=== PATIENT | male | born 1935 | race Caucasian/White ===

== ENCOUNTER 2017-03-06 08:15 | Emergency (ER) | payer MEDICARE, BC ==
--- NOTE | 2017-03-06 09:54 | EDM.PDOC ---
ED HPI GENERAL MEDICAL PROBLEM - General Chief Complaint: General Stated Complaint: REACTION TO MEDICATION Time Seen by Provider: 03/06/17 09:40 Source of Information: Reports: Patient, Family, RN Notes Reviewed History Limitations: Reports: No Limitations - History of Present Illness INITIAL COMMENTS - FREE TEXT/NARRATIVE: 81-year-old gentleman presents emergency department day complaint of rash, he recently had work done on his AICD with battery replacement was paced on Keflex prophylactically had taken the full course of 7 days of antibiotics then 2 days after completing the course antibiotic developed a rash he dealt with a rash for 2 days with Benadryl with no improvement was evaluated by his primary care started on prednisone 5 day course unfortunately he has not tolerated prednisone well he's developed some insomnia as well as twitching. Denies any shortness of breath or chest pain nausea vomiting or diarrhea - Related Data Allergies Allergy/AdvReac Type Severity Reaction Status Date / Time cephalexin Allergy Rash Verified 03/06/17 09:14 Home Meds: Home Meds Allopurinol [Allopurinol] 100 mg PO TID 03/20/15 [History] Aspirin [Erin Chewable Aspirin] 81 mg PO DAILY 03/20/15 [History] Carvedilol [Carvedilol] 6.25 mg PO BID 03/20/15 [History] Digoxin [Digoxin] 125 mcg PO DAILY 03/20/15 [History] Furosemide [Furosemide] 20 mg PO BID 03/20/15 [History] Isosorbide Mononitrate [Isosorbide Mononitrate ER] 30 mg PO DAILY 03/20/15 [ History] Multivitamin [Multi-Vitamin Daily] 1 tab PO DAILY 03/20/15 [History] Simvastatin [Simvastatin] 20 mg PO DAILY 03/20/15 [History] Spironolactone [Spironolactone] 25 mg PO DAILY 03/20/15 [History] glipiZIDE [Glipizide ER] 205 mg PO DAILY 03/20/15 [History] Prednisone [IMW: predniSONE] 20 mg PO BID 03/06/17 [History] Past Medical History Cardiovascular History: Reports: Heart Failure Genitourinary History: Reports: Urinary Incontinence Other Genitourinary History: surgery on prostate Musculoskeletal History: Reports: Other (See Below) Other Musculoskeletal History: new back and neck pain - jerking movements all over Neurological History: Reports: TIA, Other (See Below) Other Neuro History: hx of stroke 2 yrs ago Endocrine/Metabolic History: Reports: Diabetes, Type II - Infectious Disease History Infectious Disease History: Reports: Mumps - Past Surgical History Cardiovascular Surgical History: Reports: Coronary Artery Bypass Social & Family History - Tobacco Use Smoking Status *Q: Former Smoker Used Tobacco, but Quit: No Month Tobacco Last Used: 1989 - Caffeine Use Caffeine Use: Reports: Coffee - Alcohol Use Days Per Week of Alcohol Use: 7 Number of Drinks Per Day: 2 Total Drinks Per Week: 14 - Recreational Drug Use Recreational Drug Use: No ED ROS GENERAL - Review of Systems Review Of Systems: See Below Constitutional: Reports: No Symptoms HEENT: Reports: No Symptoms Respiratory: Reports: No Symptoms Cardiovascular: Reports: No Symptoms GI/Abdominal: Reports: No Symptoms : Reports: No Symptoms Skin: Reports: Rash. Denies: Bruising, Pruritis, Erythema Neurological: Reports: Other (Twitching) ED EXAM, GENERAL - Physical Exam Exam: See Below Exam Limited By: No Limitations General Appearance: Alert, WD/WN, No Apparent Distress Respiratory/Chest: No Respiratory Distress, Lungs Clear, Normal Breath Sounds, No Accessory Muscle Use Cardiovascular: Regular Rate, Rhythm, No Murmur Skin Exam: Warm, Dry, Intact, Rash, Other (Nonblanching) Course - Vital Signs Last Recorded V/S: Last Vital Signs Temp 95.4 F 03/06/17 13:06 Pulse 71 03/06/17 13:06 Resp 16 03/06/17 13:06 BP 137/69 03/06/17 13:06 Pulse Ox 95 03/06/17 13:06 - Orders/Labs/Meds Orders: Active Orders 24 hr Category Date Time Status EKG Documentation Completion [RC] ASDIRECTED Care 03/06/17 10:44 Active Peripheral IV Care [RC] . DIRECTED Care 03/06/17 10:44 Active Sodium Chloride 0.9% [Normal Saline] 1,000 ml Med 03/06/17 10:45 Active IV ASDIRECTED Sodium Chloride 0.9% [Saline Flush] Med 03/06/17 10:44 Active 10 ml FLUSH ASDIRECTED PRN Peripheral IV Insertion Adult [OM.PC] Urgent Oth 03/06/17 10:44 Ordered EKG 12 Lead [EK] Stat Ther 03/06/17 10:44 Ordered Medication Orders Sodium Chloride (Normal Saline) 1,000 mls @ 500 mls/hr IV ASDIRECTED JUANITA Last Admin: 03/06/17 11:27 Dose: 500 mls/hr Sodium Chloride (Saline Flush) 10 ml FLUSH ASDIRECTED PRN PRN Reason: Keep Vein Open Last Admin: 03/06/17 11:30 Dose: 10 ml Labs: Laboratory Tests 03/06/17 03/06/17 03/06/17 Range/Units 09:59 09:59 10:46 WBC 15.6 H (4.5-11.0) K/uL RBC 4.10 L (4.30-5.90) M/uL Hgb 13.7 (12.0-15.0) g/dL Hct 40.4 (40.0-54.0) % MCV 99 H (80-98) fL MCH 33 H (27-31) pg MCHC 34 (32-36) % Plt Count 224 (150-400) K/uL Neut % (Auto) 86 H (36-66) % Lymph % (Auto) 6 L (24-44) % [place] % (Auto) 8 H (2-6) % Eos % (Auto) 0 L (2-4) % Baso % (Auto) 0 (0-1) % Sodium 138 L (140-148) mmol/L Potassium 5.7 H (3.6-5.2) mmol/L Chloride 102 (100-108) mmol/L Carbon Dioxide 31 (21-32) mmol/L Anion Gap 10.7 (5.0-14.0) mmol/L BUN 41 H (7-18) mg/dL Creatinine 1.4 H (0.8-1.3) mg/dL Est Cr Clr Drug Dosing 40.36 mL/min Estimated GFR (MDRD) 49 L (>60) Glucose 119 H (74-106) mg/dL Calcium 9.4 (8.5-10.1) mg/dL Total Bilirubin 0.3 (0.2-1.0) mg/dL AST 61 H D (15-37) U/L ALT 30 (12-78) U/L Alkaline Phosphatase 125 H (46-116) U/L C-Reactive Protein 0.22 (0.0-0.3) mg/dL Total Protein 7.8 (6.4-8.2) g/dL Albumin 3.8 (3.4-5.0) g/dL Globulin 4.0 H (2.3-3.5) g/dL Albumin/Globulin Ratio 1.0 L (1.2-2.2) Digoxin 0.76 L (0.90-2.00) ng/mL 03/06/17 Range/Units 13:00 WBC (4.5-11.0) K/uL RBC (4.30-5.90) M/uL Hgb (12.0-15.0) g/dL Hct (40.0-54.0) % MCV (80-98) fL MCH (27-31) pg MCHC (32-36) % Plt Count (150-400) K/uL Neut % (Auto) (36-66) % Lymph % (Auto) (24-44) % [place] % (Auto) (2-6) % Eos % (Auto) (2-4) % Baso % (Auto) (0-1) % Sodium (140-148) mmol/L Potassium 4.9 (3.6-5.2) mmol/L Chloride (100-108) mmol/L Carbon Dioxide (21-32) mmol/L Anion Gap (5.0-14.0) mmol/L BUN (7-18) mg/dL Creatinine (0.8-1.3) mg/dL Est Cr Clr Drug Dosing mL/min Estimated GFR (MDRD) (>60) Glucose (74-106) mg/dL Calcium (8.5-10.1) mg/dL Total Bilirubin (0.2-1.0) mg/dL AST (15-37) U/L ALT (12-78) U/L Alkaline Phosphatase (46-116) U/L C-Reactive Protein (0.0-0.3) mg/dL Total Protein (6.4-8.2) g/dL Albumin (3.4-5.0) g/dL Globulin (2.3-3.5) g/dL Albumin/Globulin Ratio (1.2-2.2) Digoxin (0.90-2.00) ng/mL Meds: Medications Generic Name Dose Route Start Last Admin Trade Name Freq PRN Reason Stop Dose Admin Sodium Chloride 1,000 mls @ 500 mls/hr 03/06/17 10:45 03/06/17 11:27 Normal Saline IV 500 mls/hr ASDIRECTED JUANITA Administration Sodium Chloride 10 ml 03/06/17 10:44 03/06/17 11:30 Saline Flush FLUSH 10 ml ASDIRECTED PRN Administration Keep Vein Open Discontinued Medications Generic Name Dose Route Start Last Admin Trade Name Americo PRN Reason Stop Dose Admin Furosemide 20 mg 03/06/17 10:44 03/06/17 11:28 Lasix IVPUSH 03/06/17 10:45 20 mg ONETIME ONE Administration Departure - Departure Time of Disposition: 14:26 Disposition: Home, Self-Care 01 Condition: Good Clinical Impression: Allergic reaction caused by a drug Qualifiers: Encounter type: initial encounter Qualified Code(s): T78.40XA - Allergy, unspecified, initial encounter - Discharge Information Forms: ED Department Discharge Additional Instructions: List Keflex as an allergy, recommend limited use of prednisone and only if absolutely necessary, Please followup with your primary care provider in 3-5 days if not better, please call return to the emergency department with worsening of symptoms. - My Orders Last 24 Hours: My Active Orders 03/06/17 10:44 EKG Documentation Completion [RC] ASDIRECTED Peripheral IV Care [RC] . DIRECTED Sodium Chloride 0.9% [Saline Flush] 10 ml FLUSH ASDIRECTED PRN Peripheral IV Insertion Adult [OM.PC] Urgent EKG 12 Lead [EK] Stat 03/06/17 10:45 Sodium Chloride 0.9% [Normal Saline] 1,000 ml IV ASDIRECTED - Assessment/Plan Last 24 Hours: My Active Orders 03/06/17 10:44 EKG Documentation Completion [RC] ASDIRECTED Peripheral IV Care [RC] . DIRECTED Sodium Chloride 0.9% [Saline Flush] 10 ml FLUSH ASDIRECTED PRN Peripheral IV Insertion Adult [OM.PC] Urgent EKG 12 Lead [EK] Stat 03/06/17 10:45 Sodium Chloride 0.9% [Normal Saline] 1,000 ml IV ASDIRECTED Plan: Assessment Acuity = acute Site and laterality = diffuse rash, complicated in a patient with known history coronary artery disease, hypertension, dyslipidemia and congestive heart failure on digoxin Etiology = rash probably secondary to Keflex with an intolerance to prednisone Manifestations = hyperkalemia now resolved Location of injury = Home Lab values = WBC elevated 15.6 consistent leukocytosis probably secondary to steroid use, sodium low at 138 consistent hyponatremia potassium initially elevated at 5.7 after treatment of Lasix and fluid potassium now 4.9 creatinine elevated 1.4 consistent chronic renal failure stage GIII a digoxin 0.76 subtherapeutic range EKG demonstrates a paced rhythm Plan I did review lab work and EKG results with him recommend lists Keflex as an allergy and prednisone as intolerance him follow-up with his primary care 3-5 days for reevaluation if not better Patient was in agreement with the plan all questions were answered, they were instructed to return to the emergency department or call for worsening symptoms. This note was dictated using [employer] voice recognition software please call with any questions.
[2017-03-06] MEDS ORDERED: Sodium Chloride 0.9% 10 ML Syringe FLUSH PRN (10:44)
[2017-03-06] MEDS ORDERED: Furosemide 20 MG/2 ML VIAL IVPUSH ONE (10:44)
[2017-03-06] MEDS ORDERED: Sodium Chloride 0.9% 1,000 ML IV SCH (10:45)
[2017-03-06 13:07] VITALS: BP 137/69
== END 2017-03-06 14:40 | disposition home or self-care (01) ==
LOC: JP.ED 08:15
DX: L27.0 Generalized skin eruption due to drugs and medicaments taken internally (principal); T36.1X5A Adverse effect of cephalosporins and other beta-lactam antibiotics, initial encounter; G47.00 Insomnia, unspecified; R25.3 Fasciculation; T38.0X5A Adverse effect of glucocorticoids and synthetic analogues, initial encounter; E11.9 Type 2 diabetes mellitus without complications; I25.10 Atherosclerotic heart disease of native coronary artery without angina pectoris; I11.0 Hypertensive heart disease with heart failure; I50.9 Heart failure, unspecified; E78.5 Hyperlipidemia, unspecified; Z86.73 Personal history of transient ischemic attack (TIA), and cerebral infarction without residual deficits; Z79.82 Long term (current) use of aspirin; Z79.84 Long term (current) use of oral hypoglycemic drugs; Z79.899 Other long term (current) drug therapy; Z88.1 Allergy status to other antibiotic agents; Z95.1 Presence of aortocoronary bypass graft; Z95.810 Presence of automatic (implantable) cardiac defibrillator; Z87.891 Personal history of nicotine dependence
CPT/HCPCS: 36415; 80053; 80162; 84132; 85025; 86140; 93005; 93010; 96374; 99283; J1940; J7040; J7050

== ENCOUNTER 2017-12-06 11:47 | Emergency (ER) | payer MEDICARE, BC ==
[2017-12-06 12:40] VITALS: BP 119/62
--- NOTE | 2017-12-06 14:29 | EDM.PDOC ---
ED HPI GENERAL MEDICAL PROBLEM - General Chief Complaint: Genitourinary Problem Stated Complaint: CATHETER ISSUES Time Seen by Provider: 12/06/17 12:41 Source of Information: Reports: Patient, Family History Limitations: Reports: No Limitations - History of Present Illness INITIAL COMMENTS - FREE TEXT/NARRATIVE: 82 yo male presents to ER with following cutting his suprapubic cath. He was discharged from [facility] yesterday following a AAA repair and placement of suprapubic. Leg bag was causing pain so he cut catheter ~10 cm from ABD wall. cath is currently dribbling urine. Pt has no additional complaints - Related Data Allergies Allergy/AdvReac Type Severity Reaction Status Date / Time cephalexin Allergy Rash Verified 12/06/17 12:26 Home Meds: Home Meds Allopurinol 100 mg PO TID 03/20/15 [History] Aspirin [Erin Chewable Aspirin] 81 mg PO DAILY 03/20/15 [History] Carvedilol 6.25 mg PO BID 03/20/15 [History] Digoxin 125 mcg PO DAILY 03/20/15 [History] Furosemide 20 mg PO BID 03/20/15 [History] Isosorbide Mononitrate [Isosorbide Mononitrate ER] 30 mg PO DAILY 03/20/15 [ History] Multivitamin [Multi-Vitamin Daily] 1 tab PO DAILY 03/20/15 [History] Simvastatin 20 mg PO DAILY 03/20/15 [History] Spironolactone 25 mg PO DAILY 03/20/15 [History] glipiZIDE [Glipizide ER] 205 mg PO DAILY 03/20/15 [History] Prednisone [IMW: predniSONE] 20 mg PO BID 03/06/17 [History] Past Medical History Cardiovascular History: Reports: Heart Failure Genitourinary History: Reports: Urinary Incontinence Other Genitourinary History: surgery on prostate Musculoskeletal History: Reports: Other (See Below) Other Musculoskeletal History: new back and neck pain - jerking movements all over Neurological History: Reports: TIA, Other (See Below) Other Neuro History: hx of stroke 2 yrs ago Endocrine/Metabolic History: Reports: Diabetes, Type II Oncologic (Cancer) History: Reports: Bone - Infectious Disease History Infectious Disease History: Reports: Mumps - Past Surgical History Cardiovascular Surgical History: Reports: Aneurysm, Coronary Artery Bypass Male Surgical History: Reports: Suprapubic Catheter Placement Social & Family History - Tobacco Use Smoking Status *Q: Never Smoker - Caffeine Use Caffeine Use: Reports: Coffee ED ROS GENERAL - Review of Systems Review Of Systems: See Below Constitutional: Denies: Fever, Chills Respiratory: Denies: Shortness of Breath Cardiovascular: Denies: Chest Pain ED EXAM, GI/ABD - Physical Exam Exam: See Below Exam Limited By: No Limitations General Appearance: Alert, WD/WN Respiratory/Chest: No Respiratory Distress Neurological: Alert, Oriented Comments: suprapubic cath cut 10 cm from ABD wall, sutures in place Course - Vital Signs Last Recorded V/S: Last Vital Signs Temp 35.9 C 12/06/17 12:38 Pulse 84 12/06/17 12:38 Resp 14 12/06/17 12:38 BP 119/62 12/06/17 12:38 Pulse Ox 93 L 12/06/17 12:38 - Re-Assessments/Exams Free Text/Narrative Re-Assessment/Exam: 12/06/17 15:05 phone contact with Urologist it solutions sales consultant at [facility] requested that collection bag be attached and follow-up as planned. Departure - Departure Time of Disposition: 14:27 Disposition: Home, Self-Care 01 Condition: Good Clinical Impression: Catheter (urine) change required - Discharge Information Instructions: Indwelling Urinary Catheter Care, Adult Referrals: Rakesh Chiang MD [Primary Care Provider] - Forms: ED Department Discharge Additional Instructions: follow-up as planned with urology
== END 2017-12-06 15:23 | disposition home or self-care (01) ==
LOC: JP.ED 11:47
DX: Z46.6 Encounter for fitting and adjustment of urinary device (principal); E11.9 Type 2 diabetes mellitus without complications; I50.9 Heart failure, unspecified; Z79.84 Long term (current) use of oral hypoglycemic drugs; Z79.82 Long term (current) use of aspirin; Z88.1 Allergy status to other antibiotic agents; Z79.899 Other long term (current) drug therapy
CPT/HCPCS: 99283

== ENCOUNTER 2017-12-07 13:10 | Emergency (ER) | payer MEDICARE, BC ==
[2017-12-07 13:33] VITALS: BP 108/60
--- NOTE | 2017-12-07 16:43 | EDM.PDOC ---
ED HPI GENERAL MEDICAL PROBLEM - General Chief Complaint: Genitourinary Problem Stated Complaint: BLOOD IN URINE HAS CATH Time Seen by Provider: 12/07/17 14:09 Source of Information: Reports: Patient, Family, Old Records, RN Notes Reviewed History Limitations: Reports: No Limitations - History of Present Illness INITIAL COMMENTS - FREE TEXT/NARRATIVE: 82-year-old presents to the emergency department day with complaint of blood in his urine, he recently had AAA repair had suprapubic catheter placement at that time. Was in the emergency department yesterday because he cut the suprapubic catheter. Today he is complaining of bright red blood in the urine he takes combination aspirin and Plavix a temporary fix was provided for his suprapubic catheter until he can be evaluated by his urologist next week - Related Data Allergies Allergy/AdvReac Type Severity Reaction Status Date / Time cephalexin Allergy Rash Verified 12/06/17 12:26 Home Meds: Home Meds Allopurinol 100 mg PO TID 03/20/15 [History] Aspirin [Erin Chewable Aspirin] 81 mg PO DAILY 03/20/15 [History] Carvedilol 6.25 mg PO BID 03/20/15 [History] Digoxin 125 mcg PO DAILY 03/20/15 [History] Furosemide 20 mg PO BID 03/20/15 [History] Isosorbide Mononitrate [Isosorbide Mononitrate ER] 30 mg PO DAILY 03/20/15 [ History] Multivitamin [Multi-Vitamin Daily] 1 tab PO DAILY 03/20/15 [History] Simvastatin 20 mg PO DAILY 03/20/15 [History] Spironolactone 25 mg PO DAILY 03/20/15 [History] glipiZIDE [Glipizide ER] 205 mg PO DAILY 03/20/15 [History] Prednisone [IMW: predniSONE] 20 mg PO BID 03/06/17 [History] Past Medical History Cardiovascular History: Reports: Heart Failure Genitourinary History: Reports: Urinary Incontinence Other Genitourinary History: surgery on prostate Musculoskeletal History: Reports: Other (See Below) Other Musculoskeletal History: new back and neck pain - jerking movements all over Neurological History: Reports: TIA, Other (See Below) Other Neuro History: hx of stroke 2 yrs ago Endocrine/Metabolic History: Reports: Diabetes, Type II Oncologic (Cancer) History: Reports: Bone - Infectious Disease History Infectious Disease History: Reports: Mumps - Past Surgical History Cardiovascular Surgical History: Reports: Aneurysm, Coronary Artery Bypass Male Surgical History: Reports: Suprapubic Catheter Placement Social & Family History - Tobacco Use Smoking Status *Q: Never Smoker - Caffeine Use Caffeine Use: Reports: Coffee - Recreational Drug Use Recreational Drug Use: No ED ROS GENERAL - Review of Systems Review Of Systems: See Below Constitutional: Reports: No Symptoms : Reports: Hematuria ED EXAM, RENAL/ - Physical Exam Exam: See Below Exam Limited By: No Limitations General Appearance: Alert, WD/WN, No Apparent Distress GI/Abdominal: Soft, Non-Tender, Other (Suprapubic catheter is clean dry and intact) Course - Vital Signs Last Recorded V/S: Last Vital Signs Temp 96.1 F 12/07/17 13:32 Pulse 67 12/07/17 13:32 Resp 14 12/07/17 13:32 BP 108/60 12/07/17 13:32 Pulse Ox 98 12/07/17 13:32 - Orders/Labs/Meds Orders: Active Orders 24 hr Category Date Time Status UA W/MICROSCOPIC [URIN] Urgent Lab 12/07/17 16:02 Ordered Labs: Laboratory Tests 12/07/17 Range/Units 16:02 Urine Color Red Urine Appearance Turbid Urine pH 5.0 (4.5-8.0) Ur Specific [place] 1.005 L (1.008-1.030) Urine Protein 100 H (NEGATIVE) mg/dL Urine Glucose (UA) Normal (NEGATIVE) mg/dL Urine Ketones Negative (NEGATIVE) mg/dL Urine Occult Blood Large (NEGATIVE) Urine Nitrite Negative (NEGAITVE) Urine Bilirubin Negative (NEGATIVE) Urine Urobilinogen Normal (NORMAL) mg/dL Ur Leukocyte Esterase Moderate (NEGATIVE) Urine RBC Packed H (0-5) Urine WBC 0-5 (0-5) Ur Epithelial Cells Rare Amorphous Sediment Not seen Urine Bacteria Not seen Urine Mucus Not seen Departure - Departure Time of Disposition: 16:42 Disposition: Home, Self-Care 01 Condition: Fair Clinical Impression: Hematuria Qualifiers: Hematuria type: gross Qualified Code(s): R31.0 - Gross hematuria - Discharge Information Referrals: Rakesh Chiang MD [Primary Care Provider] - Additional Instructions: Please stop your aspirin, recommend keeping your follow-up appointment with your urologist next week, call return to the emergency department with worsening of symptoms - My Orders Last 24 Hours: My Active Orders 12/07/17 16:02 UA W/MICROSCOPIC [URIN] Urgent - Assessment/Plan Last 24 Hours: My Active Orders 12/07/17 16:02 UA W/MICROSCOPIC [URIN] Urgent Plan: Assessment Acuity = acute Site and laterality = hematuria Etiology = probably secondary to trauma with the suprapubic catheter Manifestations = none Location of injury = Home Lab values = urinalysis reveals packed red blood cells consistent with hematuria Plan Recommend stopping aspirin at this time continue with the Plavix keep your follow-up appointment with urology expect the hematuria to clear over the next week This note was dictated using [employer] voice recognition software please call with any questions on syntax or grammar.
== END 2017-12-07 16:55 | disposition home or self-care (01) ==
LOC: JP.ED 13:10
DX: R31.0 Gross hematuria (principal); E11.9 Type 2 diabetes mellitus without complications; I50.9 Heart failure, unspecified; Z88.1 Allergy status to other antibiotic agents; Z79.82 Long term (current) use of aspirin; Z79.899 Other long term (current) drug therapy; Z79.84 Long term (current) use of oral hypoglycemic drugs; Z86.73 Personal history of transient ischemic attack (TIA), and cerebral infarction without residual deficits; Z96.0 Presence of urogenital implants
CPT/HCPCS: 81001; 99284

== ENCOUNTER 2017-12-19 03:37 | Inpatient (IN) | payer MEDICARE, BC ==
--- NOTE | 2017-12-19 05:47 | EDM.PDOC ---
ED HPI GENERAL MEDICAL PROBLEM - General Chief Complaint: Respiratory Problem Stated Complaint: [facility] Time Seen by Provider: 12/19/17 04:17 Source of Information: Reports: Family History Limitations: Reports: Physical Impairment (You tell me that he was in clinic yesterday for her well visit is a lot of scar tissue) - History of Present Illness INITIAL COMMENTS - FREE TEXT/NARRATIVE: This gentleman arrived by EMS from home. He has bone cancer and he was seen in clinic yesterday for preop exam. A urologist plans to do some revisions lady the prostate that has cause some blockage and which resulted in inability to pass a catheter so he wound up with a suprapubic catheter he was doing well the time of his exam yesterday but tonight he became short of breath and very weak. They noticed he seemed to be a little bit sweaty. His says he is had a great deal of medical work over the past month. Recently he had an abdominal aortic aneurysm repair in [place]. He's had some loose stools for the past week but not any flako diarrhea is a very poor appetite but is taking fluids okay. They said he's lost about 14 pounds over the past year. The patient can't really give me any kind of history and so everything is obtained from his his told the nurse that he is a DNR/DNI patient they do want IV fluids and antibiotics and so forth Treatments BUSINESS INTERN: Reports: IV/IO - Related Data Allergies Allergy/AdvReac Type Severity Reaction Status Date / Time cephalexin Allergy Rash Verified 12/19/17 03:49 Home Meds: Home Meds Allopurinol 300 mg PO DAILY 03/20/15 [History] Carvedilol 6.25 mg PO BID 03/20/15 [History] Digoxin 125 mcg PO DAILY 03/20/15 [History] Furosemide 20 mg PO BID 03/20/15 [History] Isosorbide Mononitrate [Isosorbide Mononitrate ER] 30 mg PO DAILY 03/20/15 [ History] Multivitamin [Multi-Vitamin Daily] 1 tab PO DAILY 03/20/15 [History] Simvastatin 20 mg PO DAILY 03/20/15 [History] Spironolactone 25 mg PO DAILY 03/20/15 [History] glipiZIDE [Glipizide ER] 2.5 mg PO DAILY 03/20/15 [History] Bicalutamide [Casodex] 50 mg PO DAILY 12/19/17 [History] Clopidogrel Bisulfate [Clopidogrel] 1 tab PO DAILY 12/19/17 [History] Leuprolide [Lupron] 1 mg SQ Q90D 12/19/17 [History] Past Medical History Cardiovascular History: Reports: Afib, Aneurysm, CAD, Heart Failure, High Cholesterol, Hypertension, [place], Pacemaker Genitourinary History: Reports: Prostate Disorder, Urinary Incontinence Other Genitourinary History: surgery on prostate Musculoskeletal History: Reports: Other (See Below) Other Musculoskeletal History: new back and neck pain - jerking movements all over Neurological History: Reports: CVA, TIA, Other (See Below) Other Neuro History: hx of stroke 2 yrs ago Endocrine/Metabolic History: Reports: Diabetes, Type II Hematologic History: Reports: Blood Transfusion(s) Immunologic History: Reports: Immunosuppression Oncologic (Cancer) History: Reports: Bone, Prostate - Infectious Disease History Infectious Disease History: Reports: Mumps - Past Surgical History Cardiovascular Surgical History: Reports: Aneurysm, Coronary Artery Bypass, Pacer GI Surgical History: Reports: Colonoscopy Male Surgical History: Reports: Prostatectomy, Suprapubic Catheter Placement Social & Family History - Tobacco Use Smoking Status *Q: Former Smoker Used Tobacco, but Quit: Yes Month/Year Tobacco Last Used: 1989 - Caffeine Use Caffeine Use: Reports: Coffee - Alcohol Use Days Per Week of Alcohol Use: 7 Number of Drinks Per Day: 2 Total Drinks Per Week: 14 - Recreational Drug Use Recreational Drug Use: No ED ROS GENERAL - Review of Systems Review Of Systems: Unable To Obtain (All history is obtained from his ) ED EXAM, GENERAL - Physical Exam Exam: See Below Exam Limited By: Physical Impairment General Appearance: Alert, Other (A chronically ill appearing but does not appear to be dyspneic. He looks like he is resting comfortably) Eye Exam: Bilateral Eye: PERRL Throat/Mouth: Other (Wearing dentures. Mucous membranes are moist) Head: Atraumatic Neck: Supple Respiratory/Chest: Other (Lungs generally sound clear but breath sounds seem decreased.) Cardiovascular: Regular Rate, Rhythm Peripheral Pulses: 1+: Radial (L), Radial (R) (The patient has vannessa in the groin bilaterally from the recent AAA repair) GI/Abdominal: Normal Bowel Sounds, Soft, Non-Tender (Male) Exam: Other (There is a suprapubic catheter in place) Extremities: No Pedal Edema, Other (There is muscle wasting in the legs but no edema) Neurological: Alert (This gentleman seems to be fairly alert he can answer a few simple questions but his gives most history), No Motor/Sensory Deficits (He moves all extremities normally) Skin Exam: Diaphoretic (Same slightly diaphoretic), Pallor Course - Vital Signs Last Recorded V/S: Last Vital Signs Temp 35.8 C 12/19/17 05:25 Pulse 122 H 12/19/17 03:45 Resp 21 H 12/19/17 05:25 BP 114/65 12/19/17 05:25 Pulse Ox 97 12/19/17 04:25 - Orders/Labs/Meds Orders: Active Orders 24 hr Category Date Time Status Chest 1V Frontal [CR] Urgent Exams 12/19/17 04:18 Taken CULTURE BLOOD [BC] Urgent Lab 12/19/17 04:25 Received CULTURE BLOOD [BC] Urgent Lab 12/19/17 04:33 Received UA W/MICROSCOPIC [URIN] Urgent Lab 12/19/17 05:10 Ordered Blood Culture x2 Reflex Set [OM.PC] Urgent Oth 12/19/17 04:19 Ordered Labs: Laboratory Tests 12/19/17 12/19/17 12/19/17 Range/Units 04:18 04:25 04:25 WBC 5.9 (4.5-11.0) K/uL RBC 3.22 L (4.30-5.90) M/uL Hgb 9.9 L D (12.0-15.0) g/dL Hct 31.9 L (40.0-54.0) % MCV 99 H (80-98) fL MCH 31 (27-31) pg MCHC 31 L (32-36) % Plt Count 175 (150-400) K/uL Neut % (Auto) 82 H (36-66) % Lymph % (Auto) 9 L (24-44) % [place] % (Auto) 9 H (2-6) % Eos % (Auto) 0 L (2-4) % Baso % (Auto) 0 (0-1) % PT (9.5-12.0) sec INR (0.80-1.20) Sodium (140-148) mmol/L Potassium (3.6-5.2) mmol/L Chloride (100-108) mmol/L Carbon Dioxide (21-32) mmol/L Anion Gap (5.0-14.0) mmol/L BUN (7-18) mg/dL Creatinine (0.8-1.3) mg/dL Est Cr Clr Drug Dosing mL/min Estimated GFR (MDRD) (>60) Glucose (74-106) mg/dL Lactic Acid 2.8 H (0.4-2.0) mmol/L Calcium (8.5-10.1) mg/dL Total Bilirubin (0.2-1.0) mg/dL AST (15-37) U/L ALT (12-78) U/L Alkaline Phosphatase (46-116) U/L Troponin I 0.111 H* (0.000-0.056) ng/mL NT-Pro-B Natriuret Pep 43909 H (5-450) pg/mL Total Protein (6.4-8.2) g/dL Albumin (3.4-5.0) g/dL Globulin (2.3-3.5) g/dL Albumin/Globulin Ratio (1.2-2.2) Urine Color Urine Appearance Urine pH (4.5-8.0) Ur Specific [place] (1.008-1.030) Urine Protein (NEGATIVE) mg/dL Urine Glucose (UA) (NEGATIVE) mg/dL Urine Ketones (NEGATIVE) mg/dL Urine Occult Blood (NEGATIVE) Urine Nitrite (NEGAITVE) Urine Bilirubin (NEGATIVE) Urine Urobilinogen (NORMAL) mg/dL Ur Leukocyte Esterase (NEGATIVE) Urine RBC (0-5) Urine WBC (0-5) Ur Epithelial Cells Amorphous Sediment Urine Bacteria Urine Mucus Urine Other 12/19/17 12/19/17 12/19/17 Range/Units 04:25 04:25 05:10 WBC (4.5-11.0) K/uL RBC (4.30-5.90) M/uL Hgb (12.0-15.0) g/dL Hct (40.0-54.0) % MCV (80-98) fL MCH (27-31) pg MCHC (32-36) % Plt Count (150-400) K/uL Neut % (Auto) (36-66) % Lymph % (Auto) (24-44) % [place] % (Auto) (2-6) % Eos % (Auto) (2-4) % Baso % (Auto) (0-1) % PT 12.9 H (9.5-12.0) sec INR 1.20 (0.80-1.20) Sodium 138 L (140-148) mmol/L Potassium 6.3 H* (3.6-5.2) mmol/L Chloride 104 (100-108) mmol/L Carbon Dioxide 22 (21-32) mmol/L Anion Gap 18.3 H (5.0-14.0) mmol/L BUN 40 H (7-18) mg/dL Creatinine 2.0 H (0.8-1.3) mg/dL Est Cr Clr Drug Dosing 25.09 mL/min Estimated GFR (MDRD) 32 L (>60) Glucose 186 H (74-106) mg/dL Lactic Acid (0.4-2.0) mmol/L Calcium 6.8 L* D (8.5-10.1) mg/dL Total Bilirubin 2.2 H D (0.2-1.0) mg/dL AST 699 H D (15-37) U/L ALT 353 H (12-78) U/L Alkaline Phosphatase 212 H (46-116) U/L Troponin I (0.000-0.056) ng/mL NT-Pro-B Natriuret Pep (5-450) pg/mL Total Protein 6.6 (6.4-8.2) g/dL Albumin 3.3 L (3.4-5.0) g/dL Globulin 3.3 (2.3-3.5) g/dL Albumin/Globulin Ratio 1.0 L (1.2-2.2) Urine Color Yellow Urine Appearance Cloudy Urine pH 9.0 H (4.5-8.0) Ur Specific [place] 1.010 (1.008-1.030) Urine Protein 500 H (NEGATIVE) mg/dL Urine Glucose (UA) Normal (NEGATIVE) mg/dL Urine Ketones Negative (NEGATIVE) mg/dL Urine Occult Blood Large (NEGATIVE) Urine Nitrite Negative (NEGAITVE) Urine Bilirubin Small (NEGATIVE) Urine Urobilinogen 4 (NORMAL) mg/dL Ur Leukocyte Esterase Large (NEGATIVE) Urine RBC 20-30 H (0-5) Urine WBC 20-30 H (0-5) Ur Epithelial Cells Not seen Amorphous Sediment Few Urine Bacteria Few Urine Mucus Many Urine Other - Radiology Interpretation Free Text/Narrative:: Preliminary by myself the heart appears to be somewhat enlarged no definite pulmonary edema the bones in particular of the humerus bilaterally appear to be very moth-eaten looking. - Re-Assessments/Exams Free Text/Narrative Re-Assessment/Exam: 12/19/17 05:53 Labs were reviewed on this patient and multiple abnormalities are noted. I discussed with the hospitalist Dr. Mustafa the urinalysis wasn't available at the time but that's come in and shows possibly some signs of infection. At this point the patient appears to be fairly stable. The patient looks far better than his lab profile would suggest. Departure - Departure Time of Disposition: 05:57 Disposition: Admitted As Inpatient 67 Condition: Serious Clinical Impression: Bone cancer, Weakness, Dyspnea - Discharge Information Referrals: Rakesh Chiang MD [Primary Care Provider] - - My Orders Last 24 Hours: My Active Orders 12/19/17 04:18 Chest 1V Frontal [CR] Urgent 12/19/17 04:19 Blood Culture x2 Reflex Set [OM.PC] Urgent 12/19/17 04:25 CULTURE BLOOD [BC] Urgent 12/19/17 04:33 CULTURE BLOOD [BC] Urgent 12/19/17 05:10 UA W/MICROSCOPIC [URIN] Urgent - Assessment/Plan Last 24 Hours: My Active Orders 12/19/17 04:18 Chest 1V Frontal [CR] Urgent 12/19/17 04:19 Blood Culture x2 Reflex Set [OM.PC] Urgent 12/19/17 04:25 CULTURE BLOOD [BC] Urgent 12/19/17 04:33 CULTURE BLOOD [BC] Urgent 12/19/17 05:10 UA W/MICROSCOPIC [URIN] Urgent
[2017-12-19] MEDS ORDERED: Furosemide 40 MG/4 ML VIAL IVPUSH ONE (07:21)
--- NOTE | 2017-12-19 07:37 | PCM.HP ---
H&P History of Present Illness - General Date of Service: 12/19/17 Admit Problem/Dx: Admission Diagnosis/Problem Admission Diagnosis/Problem CHF, Congestive heart failure Source of Information: Patient, Family, Provider History Limitations: Reports: No Limitations - History of Present Illness Initial Comments - Free Text/Narative: Manjeet presented to the emergency room early this morning with shortness of breath. He describes moderate shortness of breath both at rest and with activity. This has been slowly progressing but worse over the past 24 hours. He does not report orthopnea per se but does think that he feels better when he sits up. He does not have a cough. He does not have any chest pain or chest tightness. No lower extremity swelling. No fevers or chills. He has had a couple of episodes where he suddenly becomes weak and diaphoretic. These episodes don't last very long but seemed to hit him pretty hard. He thinks maybe his urine looks a little darker than usual but in general has not noticed much warp changer the past week. He has mild loose stools but no flako diarrhea. He does not have abdominal pain or nausea. He was seen in the clinic yesterday and no concerns were raised by the provider seeing him at that time. Recent medical history has been complicated with endovascular AAA repair and postop urinary retention. A Gonzalez catheter was unable to be passed so he ended up with a suprapubic catheter. No obvious complications from the AAA repair. He is set up to see a urologist for further workup and hopefully treatment of his lower urinary tract obstruction. 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 Workup in the emergency room revealed multiple lab abnormalities including hyperkalemia, acute kidney injury, significant transaminitis with AST and ALTs in the 600 range, hypocalcemia as well as a troponin of 0.11. Chest x-ray did not show obvious acute findings. Clinical history and examination consistent with congestive heart failure and the plan was admission for further management. Shortly before transfer to the intensive care unit patient developed acute onset of shortness of breath. Cardiac monitoring at the time showed a wide-complex fairly regular tachycardia with a rate around 160. Oxygen was applied and the rate did slow down to around 120 and then back to around 80 before any intervention could be supplied. symptoms resolved once heart rate returned to normal. - Related Data Allergies/Adverse Reactions: Allergies Allergy/AdvReac Type Severity Reaction Status Date / Time cephalexin Allergy Rash Verified 12/19/17 03:49 Home Medications: Home Meds Allopurinol 300 mg PO DAILY 03/20/15 [History] Carvedilol 6.25 mg PO BID 03/20/15 [History] Digoxin 125 mcg PO DAILY 03/20/15 [History] Furosemide 20 mg PO BID 03/20/15 [History] Isosorbide Mononitrate [Isosorbide Mononitrate ER] 30 mg PO DAILY 03/20/15 [ History] Multivitamin [Multi-Vitamin Daily] 1 tab PO DAILY 03/20/15 [History] Simvastatin 20 mg PO DAILY 03/20/15 [History] Spironolactone 25 mg PO DAILY 03/20/15 [History] glipiZIDE [Glipizide ER] 2.5 mg PO DAILY 03/20/15 [History] Bicalutamide [Casodex] 50 mg PO DAILY 12/19/17 [History] Clopidogrel Bisulfate [Clopidogrel] 1 tab PO DAILY 12/19/17 [History] Leuprolide [Lupron] 1 mg SQ Q90D 12/19/17 [History] Past Medical History Cardiovascular History: Reports: Afib, Aneurysm, CAD, Heart Failure, High Cholesterol, Hypertension, [place], Pacemaker Genitourinary History: Reports: Prostate Disorder, Urinary Incontinence Other Genitourinary History: surgery on prostate Musculoskeletal History: Reports: Other (See Below) Other Musculoskeletal History: new back and neck pain - jerking movements all over Neurological History: Reports: CVA, TIA, Other (See Below) Other Neuro History: hx of stroke 2 yrs ago Endocrine/Metabolic History: Reports: Diabetes, Type II Hematologic History: Reports: Blood Transfusion(s) Immunologic History: Reports: Immunosuppression Oncologic (Cancer) History: Reports: Bone, Prostate - Infectious Disease History Infectious Disease History: Reports: Mumps - Past Surgical History Cardiovascular Surgical History: Reports: Aneurysm, Coronary Artery Bypass, Pacer GI Surgical History: Reports: Colonoscopy Male Surgical History: Reports: Prostatectomy, Suprapubic Catheter Placement Social & Family History - Family History Cardiac: Reports: CAD - Tobacco Use Smoking Status *Q: Former Smoker Used Tobacco, but Quit: Yes Month/Year Tobacco Last Used: 1989 - Caffeine Use Caffeine Use: Reports: Coffee - Alcohol Use Days Per Week of Alcohol Use: 7 Number of Drinks Per Day: 2 Total Drinks Per Week: 14 - Recreational Drug Use Recreational Drug Use: No H&P Review of Systems - Review of Systems: Review Of Systems: See Below Free Text/Narrative: A complete 12 point review of systems was obtained. Pertinent positives and negatives are noted in the history of present illness. All other systems were reviewed and were negative except as noted. Exam - Exam Exam: See Below - Vital Signs Vital Signs: Last Vital Signs Temp 35.8 C 12/19/17 05:25 Pulse 122 H 12/19/17 03:45 Resp 17 12/19/17 06:25 BP 108/62 12/19/17 06:25 Pulse Ox 97 12/19/17 04:25 Weight: 61.235 kg - Exam Quality Assessment: No: Supplemental Oxygen General: Alert, Oriented, Cooperative. No: Mild Distress HEENT: Conjunctiva Clear, Mucosa Moist & [place]. No: Scleral Icterus Neck: Supple, Trachea Midline, JVD Lungs: Clear to Auscultation, Normal Respiratory Effort, Decreased Breath Sounds (mild left lower lung field) Cardiovascular: Regular Rate, Regular Rhythm, Systolic Murmur. No: Gallop/S3 GI/Abdominal Exam: Normal Bowel Sounds, Soft, No Distention, No Mass, Tender ( mild left side). No: Guarding Back Exam: Normal Inspection, Full Range of Motion Extremities: No Pedal Edema. No: Increased Warmth Peripheral Pulses: 2+: Dorsalis Pedis (L), Dorsalis Pedis (R) Skin: Warm, Dry Neuro Extensive - Mental Status: Alert, Oriented x3, Nl Response to Commands Neuro Extensive - Motor, Sensory, Reflexes: CN II-XII Intact. No: Dysarthria, Abnormal Motor, Tremor Psychiatric: Alert, Normal Affect - Patient Data Lab Results Last 24 hrs: Laboratory Results - last 24 hr 12/19/17 12/19/17 12/19/17 Range/Units 04:18 04:25 04:25 WBC 5.9 (4.5-11.0) K/uL RBC 3.22 L (4.30-5.90) M/uL Hgb 9.9 L D (12.0-15.0) g/dL Hct 31.9 L (40.0-54.0) % MCV 99 H (80-98) fL MCH 31 (27-31) pg MCHC 31 L (32-36) % Plt Count 175 (150-400) K/uL Neut % (Auto) 82 H (36-66) % Lymph % (Auto) 9 L (24-44) % [place] % (Auto) 9 H (2-6) % Eos % (Auto) 0 L (2-4) % Baso % (Auto) 0 (0-1) % PT (9.5-12.0) sec INR (0.80-1.20) Sodium (140-148) mmol/L Potassium (3.6-5.2) mmol/L Chloride (100-108) mmol/L Carbon Dioxide (21-32) mmol/L Anion Gap (5.0-14.0) mmol/L BUN (7-18) mg/dL Creatinine (0.8-1.3) mg/dL Est Cr Clr Drug Dosing mL/min Estimated GFR (MDRD) (>60) Glucose (74-106) mg/dL Lactic Acid 2.8 H (0.4-2.0) mmol/L Calcium (8.5-10.1) mg/dL Total Bilirubin (0.2-1.0) mg/dL AST (15-37) U/L ALT (12-78) U/L Alkaline Phosphatase (46-116) U/L Troponin I 0.111 H* (0.000-0.056) ng/mL NT-Pro-B Natriuret Pep 72313 H (5-450) pg/mL Total Protein (6.4-8.2) g/dL Albumin (3.4-5.0) g/dL Globulin (2.3-3.5) g/dL Albumin/Globulin Ratio (1.2-2.2) Urine Color Urine Appearance Urine pH (4.5-8.0) Ur Specific [place] (1.008-1.030) Urine Protein (NEGATIVE) mg/dL Urine Glucose (UA) (NEGATIVE) mg/dL Urine Ketones (NEGATIVE) mg/dL Urine Occult Blood (NEGATIVE) Urine Nitrite (NEGAITVE) Urine Bilirubin (NEGATIVE) Urine Urobilinogen (NORMAL) mg/dL Ur Leukocyte Esterase (NEGATIVE) Urine RBC (0-5) Urine WBC (0-5) Ur Epithelial Cells Amorphous Sediment Urine Bacteria Urine Mucus Urine Other 12/19/17 12/19/1712/19/18 Range/Units 04:25 04:25 05:10 WBC (4.5-11.0) K/uL RBC (4.30-5.90) M/uL Hgb (12.0-15.0) g/dL Hct (40.0-54.0) % MCV (80-98) fL MCH (27-31) pg MCHC (32-36) % Plt Count (150-400) K/uL Neut % (Auto) (36-66) % Lymph % (Auto) (24-44) % [place] % (Auto) (2-6) % Eos % (Auto) (2-4) % Baso % (Auto) (0-1) % PT 12.9 H (9.5-12.0) sec INR 1.20 (0.80-1.20) Sodium 138 L (140-148) mmol/L Potassium 6.3 H* (3.6-5.2) mmol/L Chloride 104 (100-108) mmol/L Carbon Dioxide 22 (21-32) mmol/L Anion Gap 18.3 H (5.0-14.0) mmol/L BUN 40 H (7-18) mg/dL Creatinine 2.0 H (0.8-1.3) mg/dL Est Cr Clr Drug Dosing 25.09 mL/min Estimated GFR (MDRD) 32 L (>60) Glucose 186 H (74-106) mg/dL Lactic Acid (0.4-2.0) mmol/L Calcium 6.8 L* D (8.5-10.1) mg/dL Total Bilirubin 2.2 H D (0.2-1.0) mg/dL AST 699 H D (15-37) U/L ALT 353 H (12-78) U/L Alkaline Phosphatase 212 H (46-116) U/L Troponin I (0.000-0.056) ng/mL NT-Pro-B Natriuret Pep (5-450) pg/mL Total Protein 6.6 (6.4-8.2) g/dL Albumin 3.3 L (3.4-5.0) g/dL Globulin 3.3 (2.3-3.5) g/dL Albumin/Globulin Ratio 1.0 L (1.2-2.2) Urine Color Yellow Urine Appearance Cloudy Urine pH 9.0 H (4.5-8.0) Ur Specific [place] 1.010 (1.008-1.030) Urine Protein 500 H (NEGATIVE) mg/dL Urine Glucose (UA) Normal (NEGATIVE) mg/dL Urine Ketones Negative (NEGATIVE) mg/dL Urine Occult Blood Large (NEGATIVE) Urine Nitrite Negative (NEGAITVE) Urine Bilirubin Small (NEGATIVE) Urine Urobilinogen 4 (NORMAL) mg/dL Ur Leukocyte Esterase Large (NEGATIVE) Urine RBC 20-30 H (0-5) Urine WBC 20-30 H (0-5) Ur Epithelial Cells Not seen Amorphous Sediment Few Urine Bacteria Few Urine Mucus Many Urine Other Result Diagrams: 12/19/17 04:18 12/19/17 04:25 Imaging Impressions Last 24 hrs: CXR - images personally reviewed - heart size is enlarged, no effusion, mass or infiltrate. No obvious CHF findings EKG INTERPRETATION EKG Date: 12/19/17 Rhythm: Other (ventricular paced) Rate (Beats/Min): 80 [place]: LAD-Left [place] Deviation P-Wave: Absent QRS: Wide ST-T: Other (discordant to QRS complex) QT: Normal *Q Meaningful Use (ADM) - VTE Risk Assess *Q Each Risk Factor Represents 1 Point: Congestive heart failure (CHF) Total Score 1 Point Risk Factors: 1 Each Risk Factor Represents 2 Points: Malignancy (present or previous) Total Score 2 Point Risk Factors: 2 Each Risk Factor Represents 3 Points: Age 75 Years or Greater Total Score 3 Point Risk Factors: 3 Each Risk Factor Represents 5 Points: None Total Score 5 Point Risk Factors: 0 Venous Thromboembolism Risk Factor Score *Q: 6 - Problem List (1) Acute systolic CHF (congestive heart failure) SNOMED Code(s): 042176482, 018009054 ICD Code: I50.21 - ACUTE SYSTOLIC (CONGESTIVE) HEART FAILURE Status: Acute Current Visit: Yes (2) Hyperkalemia SNOMED Code(s): 20300338 ICD Code: E87.5 - HYPERKALEMIA Status: Acute Current Visit: Yes (3) Acute on chronic kidney failure SNOMED Code(s): 564759206 ICD Code: N17.9 - ACUTE KIDNEY FAILURE, UNSPECIFIED; N18.9 - CHRONIC KIDNEY DISEASE, UNSPECIFIED Status: Acute Current Visit: Yes Qualifiers: Acute renal failure type: unspecified Chronic kidney disease stage: stage 3 (moderate) Qualified Code(s): N17.9 - Acute kidney failure, unspecified; N18.3 - Chronic kidney disease, stage 3 (moderate) (4) Prostate cancer metastatic to bone SNOMED Code(s): 67776910 ICD Code: C61 - MALIGNANT NEOPLASM OF PROSTATE; C79.51 - SECONDARY MALIGNANT NEOPLASM OF BONE Status: Acute Current Visit: Yes Problem List Initiated/Reviewed/Updated: Yes Orders Last 24hrs: Active Orders 24 hr Category Date Time Status Patient Status Manage Transfer [TRANSFER] Routine ADT 12/19/17 07:22 Ordered EKG Documentation Completion [RC] ASDIRECTED Care 12/19/17 06:43 Active Chest 1V Frontal [CR] Urgent Exams 12/19/17 04:18 Taken CULTURE BLOOD [BC] Urgent Lab 12/19/17 04:25 Received CULTURE BLOOD [BC] Urgent Lab 12/19/17 04:33 Received CULTURE URINE [RM] Stat Lab 12/19/17 05:44 Received UA W/MICROSCOPIC [URIN] Urgent Lab 12/19/17 05:10 Ordered Blood Culture x2 Reflex Set [OM.PC] Urgent Oth 12/19/17 04:19 Ordered Resuscitation Status Routine Resus Stat 12/19/17 07:24 Ordered EKG 12 Lead [EK] Urgent Ther 12/19/17 06:43 Ordered Assessment/Plan Comment:: ASSESSMENT AND PLAN - Acute systolic congestive heart failure - 6 pound weight gain and increasing shortness of breath. He does have JVD but does not have significant crackles or lower extremity edema. I suspect the heart failures leading to poor renal perfusion as well as hepatic congestion as discussed below. Most recent ejection fraction measured within the past month was approximately 20%. -IV furosemide 40 mg -Cardiac monitoring -Continue carvedilol -Hold spironolactone with hyperkalemia -CARRIE inhibitor contraindicated with hyperkalemia Paroxysmal wide-complex tachycardia - monitoring machine reading ventricular tachycardia, EKG suggests sinus tachycardia. Atrial fibrillation with apparent conduction could also be considered. I suspect the arrhythmias related to renal failure and hyperkalemia complicating his ischemic cardiomyopathy. paroxysmal arrhythmias could explain his intermittent "hot flashes". -Hyperkalemia management as below -Amiodarone bolus followed by 24 hour infusion -Continue beta annie -Cardiac monitoring Hyperkalemia - probably related to poor renal perfusion as well as spironolactone use. Is not currently on an CARRIE inhibitor. -2 g of calcium gluconate now -D50 followed by 5 units of insulin -Furosemide as above -Repeat level early this afternoon Elevated troponin - mild elevation at the time occurs in the setting of known coronary artery disease with large fixed infarcts based on recent stress testing. No chest pain at this time. I suspect the heart failure is the instigator and there is reduced renal clearance with his acute kidney injury. EKG does not show acute ischemic changes. -Serial troponin levels -Management as above Coronary artery disease with ischemic cardiomyopathy - he is on dual antiplatelet therapy as well as beta annie at this time. He is also on a statin. No active chest pain. He does have an ICD/pacemaker combo. -Continue medical management Acute kidney injury - probably secondary to poor perfusion in the setting of congestive heart failure. -Management as above Prostate cancer metastatic to the bone - fairly recent diagnosis, currently on androgen deprivation therapy. -Continue Bicalutamide Type 2 diabetes mellitus - on only a low dose of one oral medication. This will be on hold with poor kidney function and acute illness. -Sliding-scale insulin Maintenance issues - - DVT prophylaxis - enoxaparin - GI prophylaxis - not indicated - Nutrition - low sodium - Gonzalez catheter - not indicated CODE STATUS - DNR/DNI Admission justification - This patient will be admitted for inpatient services and is medically appropriate meeting medical necessity for inpatient admission as outlined in my documentation. I reasonably expect the patient will require inpatient services that span a period time over 2 midnights. I reasonably expect this patient to be discharged or transferred within 96 hours [facility] Disposition - anticipate discharge home after the hospital stay Primary care physician - Dr Mariia Mustafa M.D.
[2017-12-19] MEDS ORDERED: Insulin Aspart 100 Units/ML 3 ML Pen SUBCUT ONE (07:45)
[2017-12-19] MEDS ORDERED: Acetaminophen 325 MG Tab PO PRN (07:46)
[2017-12-19] MEDS ORDERED: Ondansetron 4 MG Tab.DIS PO PRN (07:46)
[2017-12-19] MEDS ORDERED: Calcium Gluconate 10% 1 GM/10 ML SDV IVPUSH ONE (08:00)
[2017-12-19] MEDS ORDERED: Amiodarone 150 MG/3 ML SDV IVPUSH ONE (08:00)
[2017-12-19] MEDS ORDERED: 50% Dextrose in Water 50 ML Syringe IVPUSH ONE (08:00)
[2017-12-19] MEDS: Carvedilol 6.25 MG Tab PO SCH ×2 (08:28→16:48)
[2017-12-19] MEDS: Isosorbide Mononitrate 30 MG Tab.ER PO SCH (08:31)
[2017-12-19] MEDS: Enoxaparin 40 MG/0.4 ML Syringe SUBCUT SCH (08:32)
[2017-12-19] MEDS: Clopidogrel 75 MG Tab PO SCH (08:32)
[2017-12-19] MEDS: Allopurinol 100 MG Tab PO SCH (08:33)
[2017-12-19] MEDS ORDERED: BICALUTAMIDE 50 MG PO SCH (10:00)
[2017-12-19] MEDS: Insulin Aspart 100 Units/ML 3 ML Pen SUBCUT SCH ×3 (11:09→20:06)
[2017-12-19] MEDS: Digoxin 125 MCG Tab PO SCH (12:56)
[2017-12-19] MEDS: Simvastatin 20 MG Tab PO SCH (20:08)
[2017-12-20] MEDS ORDERED: Calcium Gluconate 2 GM in Sodium Chloride 0.9% 100 ML IV ONE (04:47)
[2017-12-20] MEDS ORDERED: Calcium Gluconate 10% 1 GM/10 ML SDV ONE (04:53)
[2017-12-20] MEDS ORDERED: Sodium Chloride 0.9% 100 ML ONE (04:54)
[2017-12-20] MEDS ORDERED: Adenosine 6 MG/2 ML SDV IVPUSH ONE ×4 (05:12→06:04)
[2017-12-20] MEDS ORDERED: Metoprolol Tartrate 5 MG/5 ML SDV ONE (05:20)
[2017-12-20] MEDS ORDERED: Metoprolol Tartrate 5 MG/5 ML SDV IVPUSH ONE (05:22)
[2017-12-20] MEDS ORDERED: Insulin Regular, Human 100 Units/ML 10 ML Vial ONE (05:23)
[2017-12-20] MEDS ORDERED: Insulin Regular, Human 100 Units/ML 10 ML Vial IVPUSH ONE (05:28)
[2017-12-20] MEDS: Morphine 2 MG/ML Syringe IVPUSH PRN ×2 (05:30→08:38)
--- NOTE | 2017-12-20 05:56 | PCM.SN ---
- Free Text/Narrative Note: I was called by nursing this morning around 5 AM with the report that the patient had suddenly developed a wide-complex tachycardia with heart rate around 130. He was reporting chest pressure and appeared pale. He was very restless at the time of onset. His calcium was a little low at the time so he did receive an order for 2 g of calcium gluconate. Shortly her after arriving at the bedside the patient appears very restless and is obviously in distress. Heart rate continues to be around 130 with a regular wide-complex tachycardia. Morning laboratory studies were reviewed and his potassium still mildly elevated at 5.8. Kidney function is stable but down from baseline. Troponin level is trending down. In addition to the calcium gluconate he received 2 doses of adenosine to try to break the rhythm with this was supraventricular tachycardia and we were not successful. He did receive D50 followed by IV insulin to shift some of the potassium. He then received 2.5 mg of IV metoprolol. Shortly thereafter his heart rate returned to 70 and a paced rhythm. Symptoms slowly subsided after that time. Telemetry strips were reviewed and he had an abrupt onset of the tachycardia. I suspect that he has either atrial fibrillation or atrial flutter with aberrant conduction leading to the wide-complex tachycardia. This does not quite look like ventricular tachycardia. He will be completing his amiodarone load in a few hours. Case will be discussed with cardiology folks little bit later this morning. He is stable at this time. Singh Mustafa MD
[2017-12-20] MEDS ORDERED: Aztreonam/Dextrose-Water 1 GM in Premix Bag 1 BAG IV SCH (06:00)
[2017-12-20] MEDS ORDERED: 50% Dextrose in Water 50 ML Syringe IVPUSH ONE (06:11)
[2017-12-20] MEDS: Aztreonam/Dextrose-Water 1 GM in Premix Bag 1 BAG IV SCH ×2 (07:55→19:36)
[2017-12-20] MEDS: Carvedilol 6.25 MG Tab PO SCH ×2 (08:21→17:49)
[2017-12-20] MEDS: Insulin Aspart 100 Units/ML 3 ML Pen SUBCUT SCH ×4 (08:23→21:20)
--- NOTE | 2017-12-20 08:25 | PCM.PN ---
- General Info Date of Service: 12/20/17 Functional Status: Reports: Pain Controlled - Review of Systems General: Reports: Weakness Pulmonary: Reports: Shortness of Breath Systems Review Comment:: Patient was restless but no acute events through the first part of the night. Early this morning around 5 AM he went back into his wide complex regular tachycardia. After receiving calcium, D50, insulin and metoprolol he returned to a paced rhythm with a rate in the 70s. Since the event he has developed difficulty with expressive aphasia. He is able to eventually produce the words but it takes some effort. Motor strength is symmetric with arms and legs. He is very sleepy at this time. He has remained stable since the event. - Patient Data Vitals - Most Recent: Last Vital Signs Temp 36.5 C 12/20/17 05:45 Pulse 70 12/20/17 08:21 Resp 22 H 12/20/17 07:00 BP 114/60 12/20/17 08:21 Pulse Ox 97 12/20/17 07:00 Weight - Most Recent: 61.235 kg I&O - Last 24 Hours: Intake & Output 12/19/17 12/20/17 12/20/17 22:59 06:59 14:59 Intake Total 380 207 Output Total 310 175 Balance 70 32 Lab Results Last 24 Hours: Laboratory Results - last 24 hr 12/19/17 12/19/17 12/19/17 Range/Units 10:04 13:55 20:36 WBC (4.5-11.0) K/uL RBC (4.30-5.90) M/uL Hgb (12.0-15.0) g/dL Hct (40.0-54.0) % MCV (80-98) fL MCH (27-31) pg MCHC (32-36) % Plt Count (150-400) K/uL Sodium (140-148) mmol/L Potassium 5.6 H (3.6-5.2) mmol/L Chloride (100-108) mmol/L Carbon Dioxide (21-32) mmol/L Anion Gap (5.0-14.0) mmol/L BUN (7-18) mg/dL Creatinine (0.8-1.3) mg/dL Est Cr Clr Drug Dosing mL/min Estimated GFR (MDRD) (>60) Glucose (74-106) mg/dL Calcium (8.5-10.1) mg/dL Troponin I 0.796 H* 0.965 H* 0.700 H* (0.000-0.056) ng/mL Digoxin (0.90-2.00) ng/mL 12/20/17 12/20/17 12/20/17 Range/Units 03:56 03:56 03:56 WBC 7.3 (4.5-11.0) K/uL RBC 2.96 L (4.30-5.90) M/uL Hgb 9.1 L (12.0-15.0) g/dL Hct 29.0 L (40.0-54.0) % MCV 98 (80-98) fL MCH 31 (27-31) pg MCHC 31 L (32-36) % Plt Count 178 (150-400) K/uL Sodium 134 L (140-148) mmol/L Potassium 5.8 H (3.6-5.2) mmol/L Chloride 100 (100-108) mmol/L Carbon Dioxide 22 (21-32) mmol/L Anion Gap 17.8 H (5.0-14.0) mmol/L BUN 49 H (7-18) mg/dL Creatinine 2.1 H (0.8-1.3) mg/dL Est Cr Clr Drug Dosing 23.89 mL/min Estimated GFR (MDRD) 30 L (>60) Glucose 180 H (74-106) mg/dL Calcium 6.8 L* (8.5-10.1) mg/dL Troponin I 0.508 H* (0.000-0.056) ng/mL Digoxin (0.90-2.00) ng/mL 12/20/17 Range/Units 06:07 WBC (4.5-11.0) K/uL RBC (4.30-5.90) M/uL Hgb (12.0-15.0) g/dL Hct (40.0-54.0) % MCV (80-98) fL MCH (27-31) pg MCHC (32-36) % Plt Count (150-400) K/uL Sodium (140-148) mmol/L Potassium (3.6-5.2) mmol/L Chloride (100-108) mmol/L Carbon Dioxide (21-32) mmol/L Anion Gap (5.0-14.0) mmol/L BUN (7-18) mg/dL Creatinine (0.8-1.3) mg/dL Est Cr Clr Drug Dosing mL/min Estimated GFR (MDRD) (>60) Glucose (74-106) mg/dL Calcium (8.5-10.1) mg/dL Troponin I (0.000-0.056) ng/mL Digoxin 1.65 (0.90-2.00) ng/mL [facility] Results Last 24 Hours: Microbiology 12/19/17 05:44 Urine Culture - Preliminary Urine, Gonzalez Cath (Indwelling) 12/19/17 04:33 Aerobic Blood Culture - Preliminary Blood - Arm, Right NO GROWTH AFTER 1 DAY Anaerobic Blood Culture - Preliminary NO GROWTH AFTER 1 DAY 12/19/17 04:25 Aerobic Blood Culture - Preliminary Blood - Arm, Right NO GROWTH AFTER 1 DAY Anaerobic Blood Culture - Preliminary NO GROWTH AFTER 1 DAY Med Orders - Current: Current Medications Acetaminophen (Tylenol) 650 mg PO Q4H PRN PRN Reason: Pain (Mild 1-3)/fever Allopurinol (Zyloprim) 100 mg PO DAILY [facility] Last Admin: 12/19/17 08:33 Dose: 100 mg Amiodarone HCl (Cordarone) 200 mg PO BID [facility] Bumetanide (Bumex) 2 mg IVPUSH ONETIME ONE Stop: 12/20/17 08:21 Carvedilol (Coreg) 6.25 mg PO BIDMEALS [facility] Last Admin: 12/20/17 08:21 Dose: 6.25 mg Clopidogrel Bisulfate (Plavix) 75 mg PO DAILY [facility] Last Admin: 12/19/17 08:32 Dose: 75 mg Digoxin (Lanoxin) 125 mcg PO DAILY@1300 [facility] Last Admin: 12/19/17 12:56 Dose: 125 mcg Enoxaparin Sodium (Lovenox) 40 mg SUBCUT DAILY [facility] Last Admin: 12/19/17 08:32 Dose: 40 mg Amiodarone HCl 900 mg/ (Dextrose/Water) 500 mls @ 16.66 mls/hr IV ASDIRECTED [facility]; Protocol Stop: 12/20/17 11:00 Last Admin: 12/19/17 16:45 Dose: 0.5 mg/min, 16.66 mls/hr Aztreonam/Dextrose 1 gm/ (Premix) 50 mls @ 100 mls/hr IV Q12H [facility] Last Admin: 12/20/17 07:55 Dose: 100 mls/hr Insulin Aspart (Novolog) 0 unit SUBCUT QIDACANDBED [facility]; Protocol Last Admin: 12/19/17 20:06 Dose: 1 unit Isosorbide Mononitrate (Imdur) 30 mg PO DAILY [facility] Last Admin: 12/19/17 08:31 Dose: 30 mg Morphine Sulfate (Morphine) 2 mg IVPUSH Q1H PRN PRN Reason: Pain Last Admin: 12/20/17 05:30 Dose: 2 mg Ondansetron HCl (Zofran Odt) 4 mg PO Q6H PRN PRN Reason: Nausea able to take PO Simvastatin (Zocor) 20 mg PO BEDTIME [facility] Last Admin: 12/19/17 20:08 Dose: 20 mg Discontinued Medications Adenosine (Adenocard) 6 mg IVPUSH NOW ONE Stop: 12/20/17 05:13 Last Admin: 12/20/17 05:57 Dose: 6 mg Adenosine (Adenocard) 6 mg IVPUSH NOW ONE Stop: 12/20/17 05:15 Adenosine (Adenocard) 12 mg IVPUSH NOW ONE Stop: 12/20/17 06:05 Adenosine (Adenocard) 12 mg IVPUSH NOW ONE Stop: 12/20/17 05:19 Last Admin: 12/20/17 06:27 Dose: 12 mg Amiodarone HCl (Cordarone) 150 mg IVPUSH ONETIME ONE; Protocol Stop: 12/19/17 08:01 Last Admin: 12/19/17 08:00 Dose: 150 mg Calcium Gluconate (Calcium Gluconate) 2 gm IVPUSH ONETIME ONE Stop: 12/19/17 08:01 Last Admin: 12/19/17 07:54 Dose: 2 gm Calcium Gluconate (Calcium Gluconate) Confirm Administered Dose 2 gm .ROUTE .STK -MED ONE Stop: 12/20/17 04:54 Last Admin: 12/20/17 06:02 Dose: Not Given Dextrose/Water (Dextrose 50% In Water) 50 ml IVPUSH ONETIME ONE Stop: 12/19/17 08:01 Last Admin: 12/19/17 08:20 Dose: 50 ml Dextrose/Water (Dextrose 50% In Water) 50 ml IVPUSH ONETIME ONE Stop: 12/20/17 06:12 Last Admin: 12/20/17 06:23 Dose: 50 ml Furosemide (Lasix) 40 mg IVPUSH ONETIME ONE Stop: 12/19/17 07:22 Last Admin: 12/19/17 08:29 Dose: 40 mg Amiodarone HCl 450 mg/ (Dextrose/Water) 250 mls @ 33.33 mls/hr IV ASDIRECTED [facility]; Protocol Stop: 12/19/17 20:00 Last Titration: 12/19/17 14:31 Dose: 0.5 mg/min, 16.7 mls/hr Amiodarone HCl 900 mg/ (Dextrose/Water) 500 mls @ 16.66 mls/hr IV ASDIRECTED [facility]; Protocol Calcium Gluconate 2 gm/ Sodium (Chloride) 120 mls @ 100 mls/hr IV ONETIME ONE Stop: 12/20/17 05:58 Last Admin: 12/20/17 05:00 Dose: 100 mls/hr Sodium Chloride (Normal Saline) Confirm Administered Dose 100 mls @ as directed .ROUTE .STK-MED ONE Stop: 12/20/17 04:55 Last Admin: 12/20/17 06:20 Dose: Not Given Aztreonam 1 gm/ Sodium (Chloride) 50 mls @ 100 mls/hr IV Q12H [facility] Aztreonam/Dextrose 1 gm/ (Premix) 50 mls @ 100 mls/hr IV Q12H [facility] Insulin Aspart (Novolog) 5 unit SUBCUT ONETIME ONE Stop: 12/19/17 07:46 Last Admin: 12/19/17 08:23 Dose: 5 units Insulin Human Regular (Novolin R) Confirm Administered Dose 1,000 unit .ROUTE .STK-MED ONE Stop: 12/20/17 05:24 Last Admin: 12/20/17 06:19 Dose: Not Given Insulin Human Regular (Novolin R) 5 unit IVPUSH ONETIME ONE; Protocol Stop: 12/20/17 05:29 Last Admin: 12/20/17 06:25 Dose: 5 units Metoprolol Tartrate (Lopressor) Confirm Administered Dose 5 mg .ROUTE .STK-MED ONE Stop: 12/20/17 05:21 Last Admin: 12/20/17 06:18 Dose: Not Given Metoprolol Tartrate (Lopressor) 2.5 mg IVPUSH ONETIME ONE Stop: 12/20/17 05:23 Last Admin: 12/20/17 06:22 Dose: 2.5 mg Bicalutamide ( Casodex) 50 MgPom* * 50 mg PO DAILY [facility] Last Admin: 12/19/17 11:10 Dose: 50 mg - Exam Quality Assessment: Supplemental Oxygen General: Alert, Oriented, Cooperative, No Acute Distress HEENT: Pupils Equal Neck: Supple, JVD Lungs: Clear to Auscultation, Normal Respiratory Effort Cardiovascular: Regular Rate, Regular Rhythm, Murmurs, Gallops GI/Abdominal Exam: Soft, Non-Tender, No Distention Extremities: No Pedal Edema. No: Increased Warmth Skin: Warm, Dry Neurological: Strength Equal Bilateral. No: Normal Speech Psy/Mental Status: Alert, Normal Affect - Problem List & Annotations (1) Acute systolic CHF (congestive heart failure) SNOMED Code(s): 710700599, 244507750 Code(s): I50.21 - ACUTE SYSTOLIC (CONGESTIVE) HEART FAILURE Status: Acute Current Visit: Yes (2) Hyperkalemia SNOMED Code(s): 36266325 Code(s): E87.5 - HYPERKALEMIA Status: Acute Current Visit: Yes (3) Acute on chronic kidney failure SNOMED Code(s): 277568305 Code(s): N17.9 - ACUTE KIDNEY FAILURE, UNSPECIFIED; N18.9 - CHRONIC KIDNEY DISEASE, UNSPECIFIED Status: Acute Current Visit: Yes Qualifiers: Acute renal failure type: unspecified Chronic kidney disease stage: stage 3 (moderate) Qualified Code(s): N17.9 - Acute kidney failure, unspecified; N18.3 - Chronic kidney disease, stage 3 (moderate) (4) Prostate cancer metastatic to bone SNOMED Code(s): 26165678 Code(s): C61 - MALIGNANT NEOPLASM OF PROSTATE; C79.51 - SECONDARY MALIGNANT NEOPLASM OF BONE Status: Acute Current Visit: Yes - Problem List Review Problem List Initiated/Reviewed/Updated: Yes - My Orders Last 24 Hours: My Active Orders 12/19/17 07:24 Resuscitation Status Routine 12/19/17 07:46 Patient Status [ADT] Routine Cardiac Education [RC] Click to Edit Cardiac Monitoring [RC] Q6H Communication Order [RC] PRN Communication Order [RC] PRN Diabetes Education [RC] Click to Edit Intake and Output [RC] QSHIFT Notify Provider Vital Signs [RC] ASDIRECTED Notify Provider [RC] PRN Oxygen Therapy [RC] PRN Up With Assistance [RC] ASDIRECTED VTE/DVT Education [RC] Per Unit Routine Vital Signs [RC] Q1H Abdomen Ltd [US] Stat Acetaminophen [Tylenol] 650 mg PO Q4H PRN Ondansetron [Zofran ODT] 4 mg PO Q6H PRN 12/19/17 08:00 Carvedilol [Coreg] 6.25 mg PO BIDMEALS 12/19/17 09:00 Allopurinol [Zyloprim] 100 mg PO DAILY Clopidogrel [Plavix] 75 mg PO DAILY Enoxaparin [Lovenox] 40 mg SUBCUT DAILY Isosorbide Mononitrate [Imdur] 30 mg PO DAILY 12/19/17 09:56 Glucose [Blood Glucose Check, Bedside] [RC] QIDACANDBED 12/19/17 11:00 Insulin Aspart [NovoLOG] See Protocol SUBCUT QIDACANDBED 12/19/17 13:00 Digoxin [Lanoxin] 125 mcg PO DAILY@1300 12/19/17 16:39 Amiodarone [Cordarone] 900 mg Dextrose 5% in Water 482 ml IV ASDIRECTED 12/19/17 21:00 Simvastatin [Zocor] 20 mg PO BEDTIME 12/19/17 Breakfast 2 Gram Sodium Diet [DIET] 12/20/17 05:36 Morphine 2 mg IVPUSH Q1H PRN 12/20/17 06:05 Head wo Cont [CT] Routine 12/20/17 08:00 Aztreonam/Dextrose-Water [Azactam in Dextrose,Iso-Osmotic 1 GM/50 ML] 1 gm Premix Bag 1 bag IV Q12H 12/20/17 08:20 Bumetanide [Bumex] 2 mg IVPUSH ONETIME ONE 12/20/17 09:00 Amiodarone [Cordarone] 200 mg PO BID 12/21/17 05:00 CBC W/O DIFF,HEMOGRAM [HEME] Timed (1) COMPREHENSIVE METABOLIC PN,CMP [CHEM] Timed MAGNESIUM [CHEM] Timed - Plan Plan:: ASSESSMENT AND PLAN - Acute systolic congestive heart failure - 6 pound weight gain and increasing shortness of breath. Still short of breath and requiring some oxygen. Bedside ultrasound today showed dilated non-collapsible inferior vena cava. 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 Review of multiple telemetry strips and EKG suggests probable P waves that continue through the tachycardia. -Hyperkalemia management as below -Continue Amiodarone, transition to oral medication -Continue beta annie, consider increased dose this evening if blood pressure tolerates -Cardiac monitoring Expressive aphasia - eventually able to produce words but does take some effort. Head CT was unremarkable. I am concerned that he may have had some degree of anoxic brain injury given his tachycardia this morning. He is resting now and hopefully this will resolve with time. -Close monitoring consider repeat imaging Hyperkalemia - probably related to poor renal perfusion as well as spironolactone use. Level had improved last night but is up a little bit again this morning. He has received shifting medications. I would anticipate that his diuretic will help lower this level. -Bumetanide as above -Repeat level early this afternoon Elevated troponin - mild elevation at the time of presentation with peak around 0.9 before trending down. He has never had chest pain. I suspect that this is demand ischemia in the setting of tachycardia, hypotension complicating to large fixed infarcts seen on recent stress test. -Troponin level in the morning -Continue dual antiplatelet therapy -Management as above Coronary artery disease with ischemic cardiomyopathy - he is on dual antiplatelet therapy as well as beta annie at this time. He is also on a statin. No active chest pain. He does have an ICD/pacemaker combo but his ICD has not fired. -Continue medical management Acute kidney injury - probably secondary to poor perfusion in the setting of congestive heart failure, kidney function stable today compared to yesterday. -Management as above Transaminitis - significant elevation of the AST and ALT at the time of presentation. Unclear if hepatic congestion or possibly medication side effect. 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 I'm going to hold his therapy with potential side effect profile of the medication including congestive heart failure and elevated AST/ALT. -discontinue Bicalutamide Type 2 diabetes mellitus - on only a low dose of one oral medication. This will be on hold with poor kidney function and acute illness. -Sliding-scale insulin Maintenance issues - - DVT prophylaxis - enoxaparin - GI prophylaxis - not indicated - Nutrition - low sodium - Gonzalez catheter - not indicated CODE STATUS - DNR/DNI Disposition - anticipate discharge home after the hospital stay Singh Mustafa M.D.
[2017-12-20] MEDS: Isosorbide Mononitrate 30 MG Tab.ER PO SCH (08:31)
[2017-12-20] MEDS: Enoxaparin 40 MG/0.4 ML Syringe SUBCUT SCH (08:32)
[2017-12-20] MEDS: Allopurinol 100 MG Tab PO SCH (08:32)
[2017-12-20] MEDS: Clopidogrel 75 MG Tab PO SCH (08:33)
[2017-12-20] MEDS ORDERED: Bumetanide 1 MG/4 ML MDV IVPUSH ONE (08:45)
[2017-12-20] MEDS: Amiodarone 200 MG Tab PO SCH ×2 (09:19→21:20)
[2017-12-20] MEDS ORDERED: LORazepam 2 MG/ML SDV IVPUSH PRN (09:21)
[2017-12-20] MEDS: Digoxin 125 MCG Tab PO SCH (13:01)
[2017-12-20] MEDS: Simvastatin 20 MG Tab PO SCH (21:20)
[2017-12-21] MEDS: Insulin Aspart 100 Units/ML 3 ML Pen SUBCUT SCH (08:21)
[2017-12-21] MEDS: Carvedilol 6.25 MG Tab PO SCH (08:22)
[2017-12-21] MEDS: Amiodarone 200 MG Tab PO SCH (08:23)
[2017-12-21] MEDS: Isosorbide Mononitrate 30 MG Tab.ER PO SCH (08:23)
[2017-12-21 08:24] VITALS: BP 113/53
[2017-12-21] MEDS: Enoxaparin 40 MG/0.4 ML Syringe SUBCUT SCH (08:24)
[2017-12-21] MEDS: Allopurinol 100 MG Tab PO SCH (08:25)
[2017-12-21] MEDS: Clopidogrel 75 MG Tab PO SCH (08:25)
[2017-12-21] MEDS: Aztreonam/Dextrose-Water 1 GM in Premix Bag 1 BAG IV SCH (08:27)
--- NOTE | 2017-12-21 10:19 | PCM.DCSUM1 ---
Discharge Summary - Hospital Course Brief History: This patient is an 82-year-old gentleman who was admitted through the emergency department with shortness of breath secondary to congestive heart failure exacerbation as well as wide-complex tachycardia. - Discharge Data Discharge Date: 12/21/17 Discharge Disposition: DC/Tfer to Acute Hospital 02 Condition: Serious - Discharge Diagnosis/Problem(s) (1) UTI (urinary tract infection) SNOMED Code(s): 16383292 ICD Code: N39.0 - URINARY TRACT INFECTION, SITE NOT SPECIFIED Status: Acute Current Visit: Yes (2) Wide-complex tachycardia SNOMED Code(s): 206712637 ICD Code: I47.2 - VENTRICULAR TACHYCARDIA Status: Acute Current Visit: Yes (3) Expressive aphasia SNOMED Code(s): 950671378 ICD Code: R47.01 - APHASIA Status: Acute Current Visit: Yes (4) CVA (cerebral vascular accident) SNOMED Code(s): 989545739 ICD Code: I63.9 - CEREBRAL INFARCTION, UNSPECIFIED Status: Acute Current Visit: Yes (5) Weakness SNOMED Code(s): 12954341 ICD Code: R53.1 - WEAKNESS Status: Acute Current Visit: Yes (6) Acute systolic CHF (congestive heart failure) SNOMED Code(s): 362486296, 051480866 ICD Code: I50.21 - ACUTE SYSTOLIC (CONGESTIVE) HEART FAILURE Status: Acute Current Visit: Yes (7) Hyperkalemia SNOMED Code(s): 19985664 ICD Code: E87.5 - HYPERKALEMIA Status: Acute Current Visit: Yes (8) Acute on chronic kidney failure SNOMED Code(s): 047285832 ICD Code: N17.9 - ACUTE KIDNEY FAILURE, UNSPECIFIED; N18.9 - CHRONIC KIDNEY DISEASE, UNSPECIFIED Status: Acute Current Visit: Yes Qualifiers: Acute renal failure type: unspecified Chronic kidney disease stage: stage 3 (moderate) Qualified Code(s): N17.9 - Acute kidney failure, unspecified; N18.3 - Chronic kidney disease, stage 3 (moderate) (9) Prostate cancer metastatic to bone SNOMED Code(s): 09160249 ICD Code: C61 - MALIGNANT NEOPLASM OF PROSTATE; C79.51 - SECONDARY MALIGNANT NEOPLASM OF BONE Status: Acute Current Visit: Yes - Patient Summary/Data Hospital Course: Manjeet presented to the emergency room with shortness of breath. He describes moderate shortness of breath both at rest and with activity. This has been slowly progressing but worse over the past 24 hours. He did not report orthopnea per se but does think that he feels better when he sits up. He does not have a cough. He does not have any chest pain or chest tightness. No lower extremity swelling. No fevers or chills. He has had a couple of episodes where he suddenly becomes weak and diaphoretic. These episodes don't last very long but seemed to hit him pretty hard. He thinks maybe his urine looks a little darker than usual but in general has not noticed much change management manager the past week. He has mild loose stools but no flako diarrhea. He does not have abdominal pain or nausea. He was seen in the clinic yesterday and no concerns were raised by the provider seeing him at that time. Recent medical history has been complicated with endovascular AAA repair and postop urinary retention. A Gonzalez catheter was unable to be passed so he ended up with a suprapubic catheter. No obvious complications from the AAA repair. He is set up to see a urologist for further workup and hopefully treatment of his lower urinary tract obstruction. 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 Workup in the emergency room revealed multiple lab abnormalities including hyperkalemia, acute kidney injury, significant transaminitis with AST and ALTs in the 600 range, hypocalcemia as well as a troponin of 0.11. Chest x-ray did not show obvious acute findings. Clinical history and examination consistent with congestive heart failure and the plan was admission for further management. Shortly before transfer to the intensive care unit patient developed acute onset of shortness of breath. Cardiac monitoring at the time showed a wide-complex fairly regular tachycardia with a rate around 160. Oxygen was applied and the rate did slow down to around 120 and then back to around 80 before any intervention could be supplied,symptoms resolved once heart rate returned to normal. He was admitted to the intensive care unit with plan for diuresis for management of his congestive heart failure. At the time of transfer from the emergency department to the intensive care unit he developed another episode of wide-complex tachycardia associated with significant hypotension. This was felt to be likely secondary to his hyperkalemia and he was treated with IV calcium infusion as well as dextrose and IV insulin. Tachycardia again resolved and decision was made to proceed with amiodarone load, he received 150 mg IV followed by a 24-hour infusion per protocol. His troponin did rise from admission up to 0.9, and then slowly decreased afterwards but had not normalized by the time of transfer. Elevated troponin was felt likely secondary to demand ischemia in the setting of his tachycardia as well as acute on chronic kidney injury. He did well until the following morning when he developed another episode of wide-complex tachycardia associated with hypotension. Potassium level and improved from the previous day, down from 6.3 to 5.9. He was again treated with IV calcium, IV dextrose, and IV insulin. He did become less responsive with the hypotension, but did convert back to intraocular paced rhythm shortly thereafter. When he awoke was found to have developed an expressive a aphasia, CT scan of the head without contrast showed no acute abnormalities. After he completed his amiodarone load, was converted to oral amiodarone. Liver enzymes were elevated time of admission and this was felt to be likely secondary to the Casodex for treatment of his metastatic prostate cancer. Casodex was discontinued and by the time of transfer her liver enzymes had improved but not totally normalized. Shortness of breath improved modestly with diuresis, renal function remained elevated from baseline throughout his hospital stay. On the morning of transfer was found to have recurrent short episodes of wide-complex tachycardia, despite correction of hyperkalemia and current therapy with amiodarone. Decision was made to pursue transfer to a tertiary care center for further evaluation by cardiology for recommendations concerning ongoing management. He will be transferred via [facility] ambulance to [facility] in [facility]. - Patient Instructions Diet: Heart Healthy Diet Activity: As Tolerated Other/Special Instructions: Patient will be transferred to [facility] in [facility] via [facility] ambulance for further evaluation and management of cardiac dysrhythmias and congestive heart failure. - Discharge Plan Home Medications: Home Meds Allopurinol 300 mg PO DAILY 03/20/15 [History] Carvedilol 6.25 mg PO BID 03/20/15 [History] Digoxin 125 mcg PO DAILY 03/20/15 [History] Furosemide 20 mg PO BID 03/20/15 [History] Isosorbide Mononitrate [Isosorbide Mononitrate ER] 30 mg PO DAILY 03/20/15 [ History] Multivitamin [Multi-Vitamin Daily] 1 tab PO DAILY 03/20/15 [History] Simvastatin 20 mg PO DAILY 03/20/15 [History] glipiZIDE [Glipizide ER] 2.5 mg PO DAILY 03/20/15 [History] Clopidogrel Bisulfate [Clopidogrel] 1 tab PO DAILY 12/19/17 [History] Leuprolide [Lupron] 1 mg SQ Q90D 12/19/17 [History] Amiodarone [Cordarone] 200 mg PO BID tablet 12/21/17 [Rx] Aztreonam/Dextrose-Water [Azactam in Dextrose,Iso-Osmotic 1 GM/50 ML] 1 gm IV Q12H bag 12/21/17 [Rx] Referrals: Rakesh Chiang MD [Primary Care Provider] - - Discharge Summary/Plan Comment DC Time >30 min.: No - Patient Data Vitals - Most Recent: Last Vital Signs Temp 97.3 F 12/21/17 05:00 Pulse 70 12/21/17 08:22 Resp 20 12/21/17 05:42 BP 113/53 L 12/21/17 08:23 Pulse Ox 99 12/21/17 05:42 Weight - Most Recent: 135 lb I&O - Last 24 hours: Intake & Output 12/20/17 12/21/17 12/21/17 22:59 06:59 14:59 Intake Total 771 200 Output Total 475 375 Balance 296 -175 Lab Results - Last 24 hrs: Laboratory Results - last 24 hr 12/20/17 12/20/17 12/21/17 Range/Units 14:54 18:03 05:12 WBC 6.4 (4.5-11.0) K/uL RBC 2.81 L (4.30-5.90) M/uL Hgb 8.7 L (12.0-15.0) g/dL Hct 28.0 L (40.0-54.0) % MCV 100 H (80-98) fL MCH 31 (27-31) pg MCHC 31 L (32-36) % Plt Count 196 (150-400) K/uL Sodium (140-148) mmol/L Potassium 5.1 (3.6-5.2) mmol/L Chloride (100-108) mmol/L Carbon Dioxide (21-32) mmol/L Anion Gap (5.0-14.0) mmol/L BUN (7-18) mg/dL Creatinine (0.8-1.3) mg/dL Est Cr Clr Drug Dosing mL/min Estimated GFR (MDRD) (>60) Glucose (74-106) mg/dL Calcium (8.5-10.1) mg/dL Magnesium (1.8-2.4) mg/dL Total Bilirubin 1.6 H (0.2-1.0) mg/dL Direct Bilirubin 0.49 H (0.0-0.2) mg/dL Indirect Bilirubin 1.11 AST 120 H D (15-37) U/L ALT 185 H (12-78) U/L Alkaline Phosphatase 151 H (46-116) U/L Total Protein 5.4 L (6.4-8.2) g/dL Albumin 2.8 L (3.4-5.0) g/dL Globulin 2.6 (2.3-3.5) g/dL Albumin/Globulin Ratio 1.1 L (1.2-2.2) / Range/Units 05:12 WBC (4.5-11.0) K/uL RBC (4.30-5.90) M/uL Hgb (12.0-15.0) g/dL Hct (40.0-54.0) % MCV (80-98) fL MCH (27-31) pg MCHC (32-36) % Plt Count (150-400) K/uL Sodium 138 L (140-148) mmol/L Potassium 4.7 (3.6-5.2) mmol/L Chloride 103 (100-108) mmol/L Carbon Dioxide 25 (21-32) mmol/L Anion Gap 14.7 H (5.0-14.0) mmol/L BUN 47 H (7-18) mg/dL Creatinine 2.0 H (0.8-1.3) mg/dL Est Cr Clr Drug Dosing 25.09 mL/min Estimated GFR (MDRD) 32 L (>60) Glucose 127 H (74-106) mg/dL Calcium 7.6 L (8.5-10.1) mg/dL Magnesium 1.8 (1.8-2.4) mg/dL Total Bilirubin 1.3 H (0.2-1.0) mg/dL Direct Bilirubin (0.0-0.2) mg/dL Indirect Bilirubin AST 63 H (15-37) U/L ALT 157 H (12-78) U/L Alkaline Phosphatase 153 H (46-116) U/L Total Protein 6.0 L (6.4-8.2) g/dL Albumin 3.2 L (3.4-5.0) g/dL Globulin 2.8 (2.3-3.5) g/dL Albumin/Globulin Ratio 1.1 L (1.2-2.2) JESSICA Results - Last 24 hrs: Microbiology 12/19/17 05:44 Urine Culture - Final Urine, Gonzalez Cath (Indwelling) Proteus Mirabilis 12/19/17 04:33 Aerobic Blood Culture - Preliminary Blood - Arm, Right NO GROWTH AFTER 2 DAYS Anaerobic Blood Culture - Preliminary NO GROWTH AFTER 2 DAYS 12/19/17 04:25 Aerobic Blood Culture - Preliminary Blood - Arm, Right NO GROWTH AFTER 2 DAYS Anaerobic Blood Culture - Preliminary NO GROWTH AFTER 2 DAYS Med Orders - Current: Current Medications Acetaminophen (Tylenol) 650 mg PO Q4H PRN PRN Reason: Pain (Mild 1-3)/fever Allopurinol (Zyloprim) 100 mg PO DAILY [facility] Last Admin: 12/21/17 08:25 Dose: 100 mg Amiodarone HCl (Cordarone) 200 mg PO BID [facility] Last Admin: 12/21/17 08:23 Dose: 200 mg Carvedilol (Coreg) 6.25 mg PO BIDMEALS [facility] Last Admin: 12/21/17 08:22 Dose: 6.25 mg Clopidogrel Bisulfate (Plavix) 75 mg PO DAILY [facility] Last Admin: 12/21/17 08:25 Dose: 75 mg Digoxin (Lanoxin) 125 mcg PO DAILY@1300 [facility] Last Admin: 12/20/17 13:01 Dose: 125 mcg Enoxaparin Sodium (Lovenox) 40 mg SUBCUT DAILY [facility] Last Admin: 12/21/17 08:24 Dose: 40 mg Aztreonam/Dextrose 1 gm/ (Premix) 50 mls @ 100 mls/hr IV Q12H [facility] Last Admin: 12/21/17 08:27 Dose: 100 mls/hr Insulin Aspart (Novolog) 0 unit SUBCUT QIDACANDBED [facility]; Protocol Last Admin: 12/21/17 08:21 Dose: Not Given Isosorbide Mononitrate (Imdur) 30 mg PO DAILY [facility] Last Admin: 12/21/17 08:23 Dose: 30 mg Lorazepam (Ativan) 0.5 mg IVPUSH Q4H PRN PRN Reason: Anxiety/Nausea Last Admin: 12/20/17 09:41 Dose: 0.5 mg Morphine Sulfate (Morphine) 2 mg IVPUSH Q1H PRN PRN Reason: Pain Last Admin: 12/20/17 08:38 Dose: 2 mg Ondansetron HCl (Zofran Odt) 4 mg PO Q6H PRN PRN Reason: Nausea able to take PO Simvastatin (Zocor) 20 mg PO BEDTIME [facility] Last Admin: 12/20/17 21:20 Dose: 20 mg Discontinued Medications Adenosine (Adenocard) 6 mg IVPUSH NOW ONE Stop: 12/20/17 05:13 Last Admin: 12/20/17 05:57 Dose: 6 mg Adenosine (Adenocard) 6 mg IVPUSH NOW ONE Stop: 12/20/17 05:15 Adenosine (Adenocard) 12 mg IVPUSH NOW ONE Stop: 12/20/17 06:05 Adenosine (Adenocard) 12 mg IVPUSH NOW ONE Stop: 12/20/17 05:19 Last Admin: 12/20/17 06:27 Dose: 12 mg Amiodarone HCl (Cordarone) 150 mg IVPUSH ONETIME ONE; Protocol Stop: 12/19/17 08:01 Last Admin: 12/19/17 08:00 Dose: 150 mg Bumetanide (Bumex) 2 mg IVPUSH ONETIME ONE Stop: 12/20/17 08:46 Last Admin: 12/20/17 08:47 Dose: 2 mg Calcium Gluconate (Calcium Gluconate) 2 gm IVPUSH ONETIME ONE Stop: 12/19/17 08:01 Last Admin: 12/19/17 07:54 Dose: 2 gm Calcium Gluconate (Calcium Gluconate) Confirm Administered Dose 2 gm .ROUTE .STK -MED ONE Stop: 12/20/17 04:54 Last Admin: 12/20/17 06:02 Dose: Not Given Dextrose/Water (Dextrose 50% In Water) 50 ml IVPUSH ONETIME ONE Stop: 12/19/17 08:01 Last Admin: 12/19/17 08:20 Dose: 50 ml Dextrose/Water (Dextrose 50% In Water) 50 ml IVPUSH ONETIME ONE Stop: 12/20/17 06:12 Last Admin: 12/20/17 06:23 Dose: 50 ml Furosemide (Lasix) 40 mg IVPUSH ONETIME ONE Stop: 12/19/17 07:22 Last Admin: 12/19/17 08:29 Dose: 40 mg Amiodarone HCl 450 mg/ (Dextrose/Water) 250 mls @ 33.33 mls/hr IV ASDIRECTED [facility]; Protocol Stop: 12/19/17 20:00 Last Titration: 12/19/17 14:31 Dose: 0.5 mg/min, 16.7 mls/hr Amiodarone HCl 900 mg/ (Dextrose/Water) 500 mls @ 16.66 mls/hr IV ASDIRECTED [facility]UAN[facility]; Protocol Amiodarone HCl 900 mg/ (Dextrose/Water) 500 mls @ 16.66 mls/hr IV ASDIRECTED [facility]AN[facility]; Protocol Stop: 12/20/17 11:00 Last Admin: 12/19/17 16:45 Dose: 0.5 mg/min, 16.66 mls/hr Calcium Gluconate 2 gm/ Sodium (Chloride) 120 mls @ 100 mls/hr IV ONETIME ONE Stop: 12/20/17 05:58 Last Admin: 12/20/17 05:00 Dose: 100 mls/hr Sodium Chloride (Normal Saline) Confirm Administered Dose 100 mls @ as directed .ROUTE .STK-MED ONE Stop: 12/20/17 04:55 Last Admin: 12/20/17 06:20 Dose: Not Given Aztreonam 1 gm/ Sodium (Chloride) 50 mls @ 100 mls/hr IV Q12H [facility] Aztreonam/Dextrose 1 gm/ (Premix) 50 mls @ 100 mls/hr IV Q12H [facility] Insulin Aspart (Novolog) 5 unit SUBCUT ONETIME ONE Stop: 12/19/17 07:46 Last Admin: 12/19/17 08:23 Dose: 5 units Insulin Human Regular (Novolin R) Confirm Administered Dose 1,000 unit .ROUTE .STK-MED ONE Stop: 12/20/17 05:24 Last Admin: 12/20/17 06:19 Dose: Not Given Insulin Human Regular (Novolin R) 5 unit IVPUSH ONETIME ONE; Protocol Stop: 12/20/17 05:29 Last Admin: 12/20/17 06:25 Dose: 5 units Metoprolol Tartrate (Lopressor) Confirm Administered Dose 5 mg .ROUTE .STK-MED ONE Stop: 12/20/17 05:21 Last Admin: 12/20/17 06:18 Dose: Not Given Metoprolol Tartrate (Lopressor) 2.5 mg IVPUSH ONETIME ONE Stop: 12/20/17 05:23 Last Admin: 12/20/17 06:22 Dose: 2.5 mg Bicalutamide ( Casodex) 50 MgPom* * 50 mg PO DAILY [facility] Last Admin: 12/19/17 11:10 Dose: 50 mg - Exam Quality Assessment: Reports: Urine Catheter General: Reports: Alert, Oriented, Cooperative, Mild Distress Lungs: Reports: Normal Respiratory Effort, Decreased Breath Sounds. Denies: Rales, Rhonchi, Rub, Wheezing Cardiovascular: Reports: Regular Rate, Regular Rhythm, No Murmurs GI/Abdominal Exam: Soft, Non-Tender, No Organomegaly, No Distention Extremities: Non-Tender, No Pedal Edema Neurological: Reports: Other (Expressive aphasia). Denies: Normal Speech Psy/Mental Status: Reports: Alert, Normal Affect, Normal Mood
--- NOTE | 2017-12-22 09:43 | CR ---
Cardiomegaly. Power pack with multiple leads. Mild interstitial thickening can indicate mild CHF. Dev eloping infiltrate within the right midlung peripherally is suggested as well. Sclerotic metastatic d isease.
== END 2017-12-21 11:02 | DRG 291 ==
LOC: JP.ED 03:37 → JP.ICU 07:22
PROVIDERS: ADMIT Internal Medicine; ATTEND Internal Medicine
DX: I13.0 Hypertensive heart and chronic kidney disease with heart failure and stage 1 through stage 4 chronic kidney disease, or unspecified chronic kidney disease (principal); I50.21 Acute systolic (congestive) heart failure; Z66 Do not resuscitate; I63.9 Cerebral infarction, unspecified; C79.51 Secondary malignant neoplasm of bone; N17.9 Acute kidney failure, unspecified; N39.0 Urinary tract infection, site not specified; I47.2 Ventricular tachycardia; C61 Malignant neoplasm of prostate; I47.9 Paroxysmal tachycardia, unspecified; R74.8 Abnormal levels of other serum enzymes; N18.3 Chronic kidney disease, stage 3 (moderate); E11.22 Type 2 diabetes mellitus with diabetic chronic kidney disease; Z87.891 Personal history of nicotine dependence; E87.5 Hyperkalemia; R53.1 Weakness; R06.02 Shortness of breath; E83.51 Hypocalcemia; R74.0 Nonspecific elevation of levels of transaminase and lactic acid dehydrogenase [LDH]; I25.5 Ischemic cardiomyopathy; I25.10 Atherosclerotic heart disease of native coronary artery without angina pectoris; E78.00 Pure hypercholesterolemia, unspecified; Z86.73 Personal history of transient ischemic attack (TIA), and cerebral infarction without residual deficits; Z95.1 Presence of aortocoronary bypass graft; Z95.0 Presence of cardiac pacemaker; Z88.1 Allergy status to other antibiotic agents; Z79.84 Long term (current) use of oral hypoglycemic drugs
CPT/HCPCS: 36415; 70450; 71045; 71045-26; 80048; 80053; 80076; 80162; 81001; 82962; 83605; 83735; 83880; 84132; 84484; 85025; 85027; 85610; 87040; 87086; 87088; 87186; 93005; 96374; 99285-25; A9270-GY; J0153; J0282; J0610; J1650; J1940; J2060; J2270; J3490; J7030; J7060; S0171